=== PATIENT | female | born 1975 | race Caucasian/White ===

== ENCOUNTER 2023-02-08 07:15 | Emergency (ER) | payer OTHER, SELFPAY ==
[2023-02-08] VITALS (7 sets, daily range): BP systolic 141–153; BP diastolic 83–97; PULSE 76–121; RESP 20–24; TEMP 36.6–37; O2SAT 92–98
[2023-02-08] MEDS: HALOPERIDOL LACTATE 5 MG/ML VIAL IM (07:33)
--- NOTE | 2023-02-08 08:28 | ED.GENADULT ---
HPI - General Adult General Chief complaint: Unspecified Stated complaint: anxiety/behavioral Time Seen by Provider: 02/08/23 07:26 Source: patient and EMS Mode of arrival: ambulatory Limitations: no limitations History of Present Illness HPI narrative: this is a 47-year-old female with psychotic episodes/panic attack started earlier this morning called EMS patient apparently took 1 of her new medications and developed a panic attack the patient was initially inconsolable EMS gave her a dose of Versed EN route to the emergency department patient assessed after receiving a dose of Haldol patient feels much better with no shortness of breath no chest pain no fever chills no abdominal pain no dysuria flank pain no headaches no blurry vision. Onset (ago): hour(s) Severity: moderate Related Data Home Medications Medication Instructions Recorded Confirmed gabapentin 300 mg capsule 300 mg PO DAILY 02/08/23 02/08/23 gabapentin 600 mg tablet 600 mg PO DAILY 02/08/23 02/08/23 montelukast 10 mg BYMOUTH DAILY 02/08/23 02/08/23 omeprazole 40 mg PO DAILY 02/08/23 02/08/23 Allergies Allergy/AdvReac Type Severity Reaction Status Date / Time Iodinated Contrast Media Allergy Unknown Verified 02/18/17 19:19 ketorolac Allergy Unknown Verified 02/18/17 19:19 Penicillins Allergy Unknown Verified 02/18/17 19:19 shellfish derived Allergy Unknown Verified 02/18/17 19:19 Review of Systems Review of Systems: All systems reviewed & are unremarkable except as noted in HPI and below PMFSH Past Medical History Medical History GERD (gastroesophageal reflux disease) Exam Const: General: cooperative and comfortable HENMT: Head: normal to inspection Face and sinus: normal facial exam Neck: Neck: normal visual inspection Chest: Chest palpation & inspection: normal inspection of the chest Resp: Effort & Inspection: normal respiratory effort Auscultation: clear to auscultation bilaterally Cardio: Jugular venous distension: no JVD Palpation: normal PMI Rate: regular rate Rhythm: regular rhythm GI: Inspection: normal to inspection : General: Yes bimanual renal exam normal bilaterally Skin: General skin exam: normal color and no rashes or lesions noted Neuro: General: oriented to person, oriented to place, oriented to time and patient oriented x3 Extrem: General: normal to inspection, full ROM and capillary refill normal Psych: Affect: Labile affect present, Animated affect present and Anxious affect present Attitude: cooperative Course Course Emergency Course: patient received a dose of IM Haldol and reassessment of patient much improved with less panicky. Patient refused any urine or lab draws and requested to sign out against medical advice. Critical Care Time Critical Care Time Critical Care Time: No Discharge Plan Discharge Clinical Impression: Panic attack Patient Disposition: Left Against Medical Advice Condition: Stable Prescriptions: No Action gabapentin 600 mg tablet 600 mg PO DAILY gabapentin 300 mg capsule 300 mg PO DAILY montelukast 10 mg BYMOUTH DAILY omeprazole 40 mg PO DAILY Follow-up/Referrals: UNKNOWN,DOCTOR [Primary Care Provider] - Time of Disposition: 08:32
--- NOTE | 2023-02-08 13:05 | PC.NURSE ---
0745 call to 2nd floor for nursing assistance to keep pt in bed. pt rocking back and forth attempting to get up. pt has hx fracture to left leg using cane for ambulation. 0800 pt will be calm for short periods, then yelling and kicking. 0815 attempting to reel hooker cardiac monitoring . pt refused . pt also refused lab draw and urine collection. pt states im feeling better right now , i want to go home dr hwang in with pt. pt continues to demand to go home. pt signed ama form. assisted to car via wheelchair with this functional tester typewriters. update to family member of medications given in er and possible effects of medications. family member voiced understanding
== END 2023-02-08 08:35 | disposition left against medical advice (07) ==
PROVIDERS: Emergency Provider Emergency Medicine
DX: F41.0 Panic disorder [episodic paroxysmal anxiety] (principal)
CPT/HCPCS: 96372; 99283; J1630

== ENCOUNTER 2023-12-12 14:35 | Emergency (ER) | payer OTHER, SELFPAY ==
--- NOTE | ~2023-12-12 | CT_ITS ---
EXAMINATION: CT abdomen pelvis wo con DATE: 12/12/2023 15:42 INDICATION: Right flank pain. Nausea. History of bilateral kidney stones. TECHNIQUE: Computed tomography (CT) of the abdomen and pelvis was performed without intravenous contr ast. Automated exposure control and iterative reconstruction technique were employed. Exam dose: 557 .22 mGy-cm total exam DLP. COMPARISON: No prior CT abdomen pelvis is available from PACS at this time FINDINGS: The lung bases are clear. Normal heart size. No pericardial or pleural effusion. There is diffuse hepatic steatosis with minimal pericholecystic sparing. No hepatic space-occupying m ass lesion is evident. Normal splenic size. No pancreatic mass lesion, calcification or pancreatic or bile duct dilatation. The gallbladder appears unremarkable. Approximately 12 x 15 mm left adrenal adenoma with attenuation of -0.3 Hounsfield units. Normal right adrenal gland. An approximately 3 mm nonobstructing lower pole right renal calculus and pinpoint upper pole right re nal nonobstructing calculus. There are proxy 8 nonobstructing left renal calculi, measuring up to approximately 3.5 mm maximal dim ension. No ureteral calculus or hydroureteronephrosis. No renal mass lesion is evident. Normal caliber of the abdominal aorta. No intraperitoneal or retroperitoneal or pelvic mass lesion or adenopathy or ascites. The uterus, adnexal areas and urinary bladder are unremarkable. No bowel obstruction, bowel wall thickening, pneumatosis or intraperitoneal free air is detected. The appendix is not identified. No inflammatory changes noted in the right lower quadrant or elsewhere. Chronic mild anterior wedging of T11. No suspicious osteolytic or osteoblastic lesions are noted. IMPRESSION: Bilateral nonobstructive nephrolithiasis Hepatic steatosis Left adrenal adenoma Reviewed, dictated and finalized at [facility]. Reviewed, dictated and finalized at [facility].
[2023-12-12 14:35] VITALS: BP 132/97; PULSE 98; RESP 17; TEMP 36.2; O2SAT 100
--- NOTE | 2023-12-12 14:40 | ED.ABDPAIN ---
HPI - Abdominal Pain General Chief Complaint: Urogenital-Female Stated Complaint: flank pain. Time Seen by Provider: 12/12/23 14:37 Source: patient Mode of arrival: ambulatory Limitations: no limitations History of Present Illness HPI narrative: Patient is a 48-year-old female with known bilateral kidney stones. She is here with acute onset of right flank pain. She is having blood in her urine. reviewing patient's past history, it appears she has been to multiple ERs for the same and given [place] on many occasions. We will address this concern with the patient. MD elicited complaint: flank pain ( Right) Pertinent past history: kidney stones ( bilateral) Onset (ago): day(s) (1) Pain Consistency: constant Location: R flank Severity: severe Pain scale (0-10): 10 Quality: sharp Radiation: RLQ and back ( right side) Migration to: RLQ Exacerbating factors: nothing Relieving factors: nothing Context: confirms history of similar episodes Associated symptoms: nausea Related Data Patient : No Home Medications Medication Instructions Recorded Confirmed gabapentin 300 mg capsule 300 mg PO DAILY 02/08/23 02/08/23 gabapentin 600 mg tablet 600 mg PO DAILY 02/08/23 02/08/23 montelukast 10 mg BYMOUTH DAILY 02/08/23 12/12/23 omeprazole 40 mg PO DAILY 02/08/23 12/12/23 Allergies Allergy/AdvReac Type Severity Reaction Status Date / Time Iodinated Contrast Media Allergy Unknown Anaphylaxis Verified 12/12/23 14:37 ketorolac Allergy Unknown Anaphylaxis Verified 12/12/23 14:37 Penicillins Allergy Unknown Anaphylaxis Verified 12/12/23 14:37 shellfish derived Allergy Unknown Anaphylaxis Verified 12/12/23 14:37 NSAIDS (Non-Steroidal Allergy Anaphylaxis Verified 12/12/23 14:37 Anti-Inflamma Review of Systems Review of Systems: All systems reviewed & are unremarkable except as noted in HPI and below Constitutional: Constitutional: Reports no additional constitutional complaints Eyes: Eyes: Reports no additional eye complaints ENT: Reports system reviewed and no additional complaints, except as documented Cardiovascular: Cardiovascular: Reports no additional cardiovascular complaints Respiratory: Respiratory: Reports no additional respiratory complaints Gastrointestinal: Gastrointestinal: Reports no additional gastrointestinal complaints Genitourinary: Genitourinary: Reports no additional female genitourinary complaints Musculoskeletal: Musculoskeletal: Reports no additional musculoskeletal complaints Integumentary/Breasts: Skin/Breast: Reports system reviewed and no additional complaints, except as docu Neurologic: Reports system reviewed and no additional complaints, except as documented Psychiatric: Psychiatric: Reports no additional psychiatric complaints Endocrine: Endocrine: Reports no additional endocrine complaints Hematologic/Lymphatic: Hematologic/Lymphatic: Reports no additional hematologic/lymphatic complaints Allergic/Immunologic: Allergic/Immunologic: Reports no additional allergic/immunologic complaints PMFSH Past Medical History Medical History GERD (gastroesophageal reflux disease) Exam Const: General: healthy appearing Nutritional Appearance: well nourished Orientation/consciousness: patient oriented x3 HENMT: Head: normal to inspection Ears: external ears normal Face/Nose/Sinus: Normal external nose present Eyes: Conjunctivae: conjunctivae normal Pupils: Equal, round and reactive pupils present EOM: EOMs intact bilaterally Neck: Neck: normal visual inspection Chest: Chest palpation & inspection: normal inspection of the chest Resp: Effort & Inspection: normal respiratory effort and not labored Auscultation: clear to auscultation bilaterally Cardio: Rate: regular rate and not bradycardic Rhythm: regular rhythm GI: Inspection: non-distended GI Palp: Yes Soft to palpation, Yes Tenderness to palpation present (GI) ( ri
[2023-12-12 14:54] LABS: Appearance Urine Cloudy (Clear); Bilirubin Urine Negative (Negative); Blood Urine 3+ (Negative); Color Urine Red (Yellow); Glucose Urine UA 1+ (Negative); Ketones Urine Negative (Negative); Leukocyte Esterase Ur Trace LEU/UL (Negative); Nitrate Urine Negative (Negative); Protein Urine Trace (Negative); Urobilinogen Urine 0.2 mg/dL (0.2-1.0); pH Urine 6.5 (5.0-8.0)
[2023-12-12 14:57] LABS: Pregnancy On Board Control Positive; Urine Pregnancy Test Negative
[2023-12-12 14:58] LABS: Add Urine Microscopic? YES
[2023-12-12 14:59] LABS: Bacteria Urine 1+ /hpf; RBC Urine >75 /hpf (0-2); Squamous Epithelial Cell Urine Rare /hpf (Few); WBC Urine 0-3 /hpf (0-3)
[2023-12-12 15:00] VITALS: BP 144/98; PULSE 82; RESP 17; O2SAT 100
[2023-12-12 15:15] LABS: Basophils Absolute Auto 0.05 K/mm3 (0.00-0.10); Basophils Percent Auto 0.5 % (0.0-1.0); Eosinophils Absolute Auto 0.18 K/mm3 (0.02-0.50); Hematocrit 44.6 % (35.0-49.0); Hemoglobin 14.5 g/dL (12.0-15.0); Immature Granulocyte Absolute 0.04 K/mm3 (0.00-0.00); Immature Granulocyte Percent A 0.4 % (0.0-0.0); Lymphocytes Absolute Auto 3.99 K/mm3 (1.10-4.50); Lymphocytes Percent Auto 43.8 % (18.0-42.0); Mean Corpuscular HGB Conc 32.5 g/dL (32-36); Mean Corpuscular Hemoglobin 27.7 pg (27.0-31.0); Mean Corpuscular Volume 85.1 fL (78.0-102.0); Mean Platelet Volume 10.5 fl (9.2-11.8); Monocytes Absolute Auto 0.42 K/mm3 (0.10-0.90); Monocytes Percent Auto 4.6 % (2.0-11.0); Neutrophils Absolute Auto 4.44 K/mm3 (1.70-7.20); Neutrophils Percent Auto 48.7 % (50.0-70.0); Platelet Count Result 254 K/mm3 (150-420); Red Blood Count 5.24 M/mm3 (4.20-5.40); Red Cell Distribution Width 14.7 % (11.6-14.4); White Blood Count 9.1 K/mm3 (4.8-10.8)
[2023-12-12 15:30] VITALS: BP 148/96; PULSE 82; RESP 17; O2SAT 99
[2023-12-12] MEDS: CIPROFLOXACIN 500 MG TAB PO (15:30)
[2023-12-12] MEDS: TAMSULOSIN HCL 0.4 MG CAPSULE PO (15:30)
[2023-12-12] MEDS: methylPREDNISolone 4 MG TABLET PO (15:31)
[2023-12-12] MEDS: MORPHINE SULFATE (*CRX) 2 MG/ML INJ IV PUSH (15:32)
--- NOTE | 2023-12-12 15:45 | PC.NURSE ---
Patient back in room from CT. puts call light on, states her medication isn't helping and needs something else for pain. Patient asked for dilauded states that is all that works for her.
[2023-12-12 15:49] LABS: Anion Gap 13 mmol/L (4-12); Carbon Dioxide 22 mmol/L (21-32); Chloride 102 mmol/L (98-108); Estimated Glomerular Filt Rate > 60; Glucose 196 mg/dL (70-99); Sodium 137 mmol/L (136-145)
[2023-12-12 15:50] LABS: Alanine Aminotransferase 57 U/L (14-59); Albumin Level 3.4 g/dL (3.4-5.0); Alkaline Phosphatase 157 U/L (46-116); Aspartate Amino Transferase 43 U/L (15-37); Calcium 9.2 mg/dL (8.5-10.1); Lipase 75 U/L (16-77); Total Protein 7.6 g/dL (6.4-8.2)
[2023-12-12 15:54] LABS: Blood Urea Nitrogen 9 mg/dL (7-18); Osmolality Calculated 287 mOsm/kg (285-295)
[2023-12-12 16:08] VITALS: BP 132/78; PULSE 67; RESP 17; O2SAT 100
[2023-12-12 16:19] LABS: Bilirubin,Total 0.2 mg/dL (0.00-1.00)
[2023-12-12 16:33] VITALS: BP 124/95; PULSE 82; RESP 17; TEMP 36.4; O2SAT 99
--- NOTE | 2023-12-12 16:33 | PC.NURSE ---
ERP provided patient a copy of her CT report to take with her to her urologist appointment coming up, patient it back into the room when walking out stating it wasn't correct she knows her body and it was bullshit results .
== END 2023-12-12 16:33 | disposition home or self-care (01) ==
PROVIDERS: Emergency Provider Emergency Medicine
DX: N39.0 Urinary tract infection, site not specified (principal); N20.0 Calculus of kidney; R31.9 Hematuria, unspecified; K21.9 Gastro-esophageal reflux disease without esophagitis
CPT/HCPCS: 36415; 74176; 80053; 81001; 81025; 83690; 85025; 96374; 99284; A9270; J2270